=== PATIENT | male | born 1950 | race Caucasian/White ===

== ENCOUNTER → 2019-08-23 12:17 | Outpatient (BNVA) | payer MEDICARE, OTHER, SELFPAY | PROVIDERS: Referring Provider Internal Medicine; Visit Provider Psychiatry & Neurology Neurology | DX: M21.371 Foot drop, right foot (principal); G95.9 Disease of spinal cord, unspecified; M48.061 Spinal stenosis, lumbar region without neurogenic claudication; G57.31 Lesion of lateral popliteal nerve, right lower limb | CPT/HCPCS: 99205 ==

== ENCOUNTER → 2019-11-22 10:13 | Outpatient (BNVA) | payer MEDICARE, OTHER, SELFPAY | PROVIDERS: Visit Provider Psychiatry & Neurology Neurology | DX: M48.061 Spinal stenosis, lumbar region without neurogenic claudication (principal); M21.371 Foot drop, right foot; G95.9 Disease of spinal cord, unspecified; G57.30 Lesion of lateral popliteal nerve, unspecified lower limb; I10 Essential (primary) hypertension; M54.5 Low back pain | CPT/HCPCS: 99358 ==

== ENCOUNTER → 2020-01-24 10:08 | Outpatient (BNVA) | payer MEDICARE, OTHER, SELFPAY | PROVIDERS: Visit Provider Psychiatry & Neurology Neurology | DX: M21.371 Foot drop, right foot (principal); M54.5 Low back pain; M48.061 Spinal stenosis, lumbar region without neurogenic claudication; G95.9 Disease of spinal cord, unspecified; G57.31 Lesion of lateral popliteal nerve, right lower limb; I10 Essential (primary) hypertension | CPT/HCPCS: 99214 ==